=== PATIENT | male | born 1940 | race Caucasian/White ===

== ENCOUNTER 2022-01-22 13:10 | Inpatient (IN) | payer MEDICARE ==
[~2022-01-22] VITALS: Ht 182.9 cm; Wt 79.5 kg
[~2022-01-22 13:10] MED LIST: ATOR40TA PO; Aspir 8181 MG PO; CARV6.25 PO; CILO100 PO; CLOP75 PO; DOCU100 PO; GABA300 PO; HYDR1TAB94 PO; LISI20 PO; NITR.4SL; PANT40 PO; Percocet 5-3251 EACH PO; Senna-Extra17.2 MG PO; TAMS.4ER PO
[2022-01-22] MEDS ORDERED: TERA5 PO (13:30)
[2022-01-22] MEDS ORDERED: HYDR1TAB94 PO (13:31)
[2022-01-22] MEDS ORDERED: CYCLOBENZAPRINE5 MG PO (14:18)
[2022-01-22] MEDS ORDERED: AMLO5 PO (14:19)
[2022-01-22] MEDS ORDERED: ATOR40TA PO (14:21)
[2022-01-22] MEDS ORDERED: Diclofenac Sodi25 MG PO (14:26)
--- NOTE | 2022-01-22 16:28 | NUR ---
SHIFT SUMMARY PT A&OX4, VSS/RA, NPO. PAIN TREATED WITH PERC 5 MG. ORNELAS PATENT & DRAINING YELLOW URINE, STAT LOCK ON, OFF FLOOR. 18G INFUSING D5NS @ 50 MLS/HR. SURG INF PREV DONE. DR ARIAS CONSULTED-POSS O.R. TODAY. WILL REPORT TO NEXT RN.
--- NOTE | 2022-01-22 17:12 | NUR ---
Pt. is awake in bed and welcomes my spiritual care visit. Pt. is pleasant bu slightly unsettled by the delay in his procedure. Listen theraputicly with a calming presence. Establish rapport with Pt. Pt. displays evidence of hope and corrine. Pryaed with Pt. Pt. verbalized gratitude for the spiritual care visit.
[2022-01-23 05:39] LABS: Hematocrit 36.7 % (37.0-53.0); Hemoglobin 12.1 g/dL (13.5-17.5); Mean Corpuscular Volume 91 fL (80-100); Mean Platelet Volume 9.2 fL (9.1-12.4); Platelet Count 84 K/mm3 (150-400); RDW Coefficient Variation 13.7 % (11.7-14.2); RDW Standard Deviation 46.5 fL (35.1-46.3); Red Blood Cell Count 4.04 M/mm3 (4.30-5.90); White Blood Cell Count 2.44 K/mm3 (4.00-11.30)
[2022-01-23 05:55] LABS: Bun/Creatinine Ratio 30.7 (12.0-20.0); Calcium, Blood 8.5 mg/dL (8.5-10.1); Creatinine, Blood 1.27 mg/dL (0.60-1.20); Potassium, Blood 4.2 mmol/L (3.5-5.5)
--- NOTE | 2022-01-23 06:34 | NUR ---
DENTAL HYGIENIST SUMMARY NO ACUTE CHANGES THIS SHIFT. PT TO HAVE L HIP SURGERY LATER TODAY WITH DR ARIAS. PT AAOX4 AND PLEASANT. MEDICATED FOR PAIN SEVERAL TIMES THROUGH THE NIGHT PER EMAR. PT HYPERTENSIVE WITH PAIN BUT IMPROVES AFTER PAIN MEDS GIVEN. WILL CONTINUE TO MONITOR.
[2022-01-23 11:17] LABS: Source, Urine Clean Catch
[2022-01-23 11:22] LABS: Appearance, Urine Clear (Clear); Bilirubin, Urine Neg (Neg); Blood, Urine 5+ (Neg); Color, Urine Yellow (P-Yellow); Glucose Qualitative, Urine Neg (Neg); Ketones, Urine Neg (Neg); Leukocyte Esterase, Urine Neg (Neg); Nitrite, Urine Neg (Neg); Protein, Urine 2+ (Neg); Urobilinogen, Urine NORM (Normal)
[2022-01-23 11:41] LABS: Red Blood Cells, Urine 25-50 /hpf (0-2); Squamous Epithelial Cells Not Seen /hpf (Few); White Blood Cells, Urine 0-2 /hpf (0-5)
[2022-01-23 11:42] LABS: Bacteria Few /hpf; Granular Casts 0-2 /lpf (0)
--- NOTE | 2022-01-23 15:34 | NUR ---
History, Chart, Medications and Allergies reviewed before start of procedure. Patient confirms NPO status and agrees with scheduled surgery. Pre-Op teaching done. Pt verbalizes understanding.
--- NOTE | 2022-01-23 17:06 | NUR ---
01/23/22 1706 David Garcia PT RECOVERED IN OR DUE TO COVID STATUS. REPORT GIVEN TO ORD.KXM AT 0819.
--- NOTE | 2022-01-23 17:31 | NUR ---
RECOVERY DONE IN OR 4 DUE TO POSITIVE COVID
--- NOTE | 2022-01-23 17:57 | NUR ---
SHIFT SUMMARY PT A&OX4, VSS/2LNC FOR SATS >93%, JACQUELINE PO H20, ORNELAS PATENT & DRAINING, DENIES PAIN AT THIS TIME, REPOSITIONS SELF WELL IN BED. S/P L TAMMI HIP, AQUACEL CDI, TEDS & SCDS ON. WILL REPORT TO ONCOMING NOC RN.
--- NOTE | 2022-01-23 18:11 | NUR ---
PT TO ROOM 211 PER BED NO ACUTE CHANGES PLEASANT OFFERS NO COMPLAINTS
[2022-01-24 04:55] LABS: BASOPHILS PERCENT AUTO 0 % (0-2); EOSINOPHILS PERCENT AUTO 0 % (0-6); Hematocrit 32.4 % (37.0-53.0); Hemoglobin 10.6 g/dL (13.5-17.5); IMMATURE GRAN ABSOLUTE AUTO 0.01 K/mm3 (0.00-0.10); IMMATURE GRAN PERCENT AUTO 0 % (0-1); LYMPHOCYTES ABSOLUTE AUTO 0.21 K/mm3 (0.84-5.20); LYMPHOCYTES PERCENT AUTO 7 % (21-46); MONOCYTES ABSOLUTE AUTO 0.23 K/mm3 (0.16-1.47); MONOCYTES PERCENT AUTO 8 % (4-13); Mean Corpuscular HGB 30.1 pg (26.0-34.0); Mean Corpuscular HGB Conc 32.7 g/dL (31.5-36.5); Mean Corpuscular Volume 92 fL (80-100); Mean Platelet Volume 9.8 fL (9.1-12.4); NEUTROPHILS ABSOLUTE AUTO 2.57 K/mm3 (1.96-9.15); NEUTROPHILS PERCENT AUTO 85 % (41-73); Platelet Count 86 K/mm3 (150-400); RDW Coefficient Variation 13.7 % (11.7-14.2); RDW Standard Deviation 46.5 fL (35.1-46.3); Red Blood Cell Count 3.52 M/mm3 (4.30-5.90); White Blood Cell Count 3.02 K/mm3 (4.00-11.30)
[2022-01-24 05:08] LABS: Albumin, Blood 2.6 g/dL (3.4-5.0); Anion Gap 7 mmol/L (6-16); Blood Urea Nitrogen 34 mg/dL (8-24); Bun/Creatinine Ratio 27.6 (12.0-20.0); CO2, Blood 24 mmol/L (21-32); Calcium, Blood 8.6 mg/dL (8.5-10.1); Chloride, Blood 111 mmol/L (98-108); Creatinine, Blood 1.23 mg/dL (0.60-1.20); Glomerular Filtration Rate 58 (60-); Glucose, Blood 131 mg/dL (70-99); Phosphorus, Blood 3.2 mg/dL (2.5-4.9); Potassium, Blood 4.7 mmol/L (3.5-5.5); Sodium, Blood 142 mmol/L (136-145)
--- NOTE | 2022-01-24 05:32 | NUR ---
ASSUMED CARE OF PT AT 1900. PT IS A&OX4, MAX ASSIST OOB AND CALLS APPROPRIATELY. POST OP DAY 1 FOR TOTAL L HIP, CSM IS INTACT. PAIN IS CONTROLLED WITH PRN ALEXANDRE 5MG AND SCHEDULED TORADOL. ABLE TO TOLERATE DIET. C+, TESTED AT [facility], ASYMPTOMATIC BUT REMAINS ON PRECAUTIONS. SLEEPS BETWEEN CARES, SLEEPS 7+ HOURS THIS SHIFT. WILL CONTINUE TO MONITOR.
--- NOTE | 2022-01-24 07:34 | NUR ---
ASSUMED CARE: PT LAYING IN BED ON ROOM AIR. NO ACUTE NEEDS OR CONCERNS AT THIS TIME.
--- NOTE | 2022-01-24 17:36 | NUR ---
SHIFT SUMMARY: PT SPENT SOME TIME UP IN A CHAIR THIS SHIFT. OCCASIONAL COUGH. MEDICATED FOR PAIN PER ORDERS WITH APPROPRIATE MANAGEMENT. DENIES ACUTE NEEDS OR CONCERNS AT THIS TIME.
--- NOTE | 2022-01-24 20:10 | NUR ---
RECEIVED REPORT AND ASSUMED CARE OF PT. HE IS SITTING UP IN BED WATCHING TV. REPORTS PAIN IS TOLERABLE, DENIES ANY N/V, SOB OR CHEST PAIN. DENIES ANY NEEDS AT THIS TIME. CALL LIGHT IN REACH.
--- NOTE | 2022-01-25 01:03 | NUR ---
PT REPORTED THAT HE WAS FEELING THE NEED TO URINATE, URINE VISUALIZED IN BAG. MANIPULATED ORNELAS AND WAS ABLE TO DRAIN APPROX 200 ML OF URINE, PT REPORTED RELIEF. PT COUGHED AFTER SWALLOWING APAP AND COUGHED ONE PARTIALLY DISSOLVED PILL UP. HE WAS ABLE TO SWALLOW IT AGAIN WITH WATER AND APPLE SAUCE. PT MAY BE A CANDIDATE FOR A SWALLOW EVALUATION. ENCOURAGED PT TO MOVE AND REPOSITION, EDUCATED ON AVOIDING DEVELOPMENT OF BED SORES. ASSISTED PT TO REPOSTION IN BED. CALL LIGHT IN REACH.
[2022-01-25 04:35] LABS: Hematocrit 27.9 % (37.0-53.0); Hemoglobin 9.3 g/dL (13.5-17.5); Mean Corpuscular HGB 30.5 pg (26.0-34.0); Mean Corpuscular HGB Conc 33.3 g/dL (31.5-36.5); Mean Corpuscular Volume 92 fL (80-100); Mean Platelet Volume 9.9 fL (9.1-12.4); Platelet Count 96 K/mm3 (150-400); RDW Coefficient Variation 13.7 % (11.7-14.2); RDW Standard Deviation 46.2 fL (35.1-46.3); Red Blood Cell Count 3.05 M/mm3 (4.30-5.90); White Blood Cell Count 2.37 K/mm3 (4.00-11.30)
[2022-01-25 04:51] LABS: Albumin, Blood 2.3 g/dL (3.4-5.0); Anion Gap 7 mmol/L (6-16); Blood Urea Nitrogen 40 mg/dL (8-24); Bun/Creatinine Ratio 27.6 (12.0-20.0); CO2, Blood 24 mmol/L (21-32); Calcium, Blood 8.1 mg/dL (8.5-10.1); Chloride, Blood 111 mmol/L (98-108); Creatinine, Blood 1.45 mg/dL (0.60-1.20); Glomerular Filtration Rate 48 (60-); Glucose, Blood 101 mg/dL (70-99); Phosphorus, Blood 2.7 mg/dL (2.5-4.9); Sodium, Blood 142 mmol/L (136-145)
--- NOTE | 2022-01-25 07:50 | NUR ---
SHIFT SUMMARY: JH IS A&OX4. VSS, NO ACUTE EVENTS OVERNIGHT. LABS WITH KIDNEY FUNCTION WORSENING THIS MORNING, DECREASED CALCIUM, AND DECREASED ALBUMIN. ORNELAS PATENT, STAT LOCK IN PLACE, BAG HANGING OFF OF FLOOR. AQUACELL TO LEFT ANTERIOR HIP C/D&I. HE IS TOLERATING PO INTAKE WELL, ONE EPISODE OF DIFFICULTY SWALLOWING A TABLET NOTED EARLIER. ENCOURAGED PT TO TURN AND REPOSITION WITH MINIMAL SUCCESS, PT WILLING TO MAKE SMALL ADJUSTMENTS. IV TO R WRIST PATENT, PT REPORTS QUITE SENSITIVE TO FLUSHES. HE IS LYING IN BED WITH THE CALL LIGHT IN REACH. REPORT GIVEN TO DAY SHIFT RN.
--- NOTE | 2022-01-25 19:00 | NUR ---
SHIFT SUMMARY PATIENT ALERT AND ORIENTED THROUGHOUT SHIFT. TOLERATING REGULAR DIET. SEEMS TO HAVE SOME DIFFICULTY WITH THINS LIQUIDS. SWALLOW EVAL MAY BE HELPFUL. PASSED ON TO BARREL COATER. 1 PERSON ASSIST WITH FWW AND GAIT BELT TO COMMODE. VOIDING WELL, 2 BMS THIS SHIFT. ASYMPTOMATIC COVID. PLAN TO DISCHARGE TO SNF WHEN BED AVAILABLE. AQUACEL TO LEFT HIP C/D/I.
--- NOTE | 2022-01-26 04:52 | NUR ---
ASSUMED CARE OF PT AT 1900 HRS. NO ACUTE CHANGES THIS SHIFT. PT IS ALERT AND ORIENTED. UP IN CHAIR AT START OF SHIFT, ABLE TO STAND PIVOT TO BED FROM CHAIR WITH 2 STAFF, WALKER AND GAIT BELT. RECENT HIP SURGERY, AQUACEL DRESSING IS CDI. PT IS C+ AND IS ASYMPOMATIC. PT SLEEPS 7+ HOURS THIS SHIFT. WILL CONTINUE TO MONITOR AND GIVE REPORT TO DAY SHIFT RN.
--- NOTE | 2022-01-26 18:21 | NUR ---
SHIFT SUMMARY PT A&OX4, VSS/RA, INCENTIVE SPIROMETER USED BY PT T/O SHIFT, JACQUELINE PO/FLUIDS ENC T/O SHIFT, VOIDING WELL, AMB SBA W/FWW & GB TO BRP X3/NEEDS CUES, UP TO CHAIR T/O SHIFT. PAIN MANAGED WELL WITH TYLENOL AND TORADOL. WILL REPORT TO ONCOMING NOC RN.
--- NOTE | 2022-01-27 04:44 | NUR ---
SHIFT SUMMARY PT RESTED WELL T/O SHIFT. TYLENOL/TORADOL FOR LEFT HIP PAIN PRN. AQUACEL DRESSING REMAINS CDI. USING URINAL TO VOID. USES CALL LIGHT APPROPRIATELY.
[2022-01-27 05:53] LABS: BASOPHILS ABSOLUTE AUTO 0.01 K/mm3 (0.00-0.23); BASOPHILS PERCENT AUTO 0 % (0-2); EOSINOPHILS ABSOLUTE AUTO 0.03 K/mm3 (0.00-0.68); EOSINOPHILS PERCENT AUTO 1 % (0-6); Hematocrit 28.1 % (37.0-53.0); Hemoglobin 9.3 g/dL (13.5-17.5); IMMATURE GRAN PERCENT AUTO 4 % (0-1); LYMPHOCYTES ABSOLUTE AUTO 0.34 K/mm3 (0.84-5.20); LYMPHOCYTES PERCENT AUTO 13 % (21-46); MONOCYTES ABSOLUTE AUTO 0.29 K/mm3 (0.16-1.47); MONOCYTES PERCENT AUTO 11 % (4-13); Mean Corpuscular HGB 30.4 pg (26.0-34.0); Mean Corpuscular HGB Conc 33.1 g/dL (31.5-36.5); Mean Corpuscular Volume 92 fL (80-100); Mean Platelet Volume 9.5 fL (9.1-12.4); NEUTROPHILS ABSOLUTE AUTO 1.81 K/mm3 (1.96-9.15); NEUTROPHILS PERCENT AUTO 70 % (41-73); Platelet Count 138 K/mm3 (150-400); RDW Coefficient Variation 13.8 % (11.7-14.2); RDW Standard Deviation 46.6 fL (35.1-46.3); Red Blood Cell Count 3.06 M/mm3 (4.30-5.90); White Blood Cell Count 2.58 K/mm3 (4.00-11.30)
[2022-01-27 05:56] LABS: Albumin, Blood 2.4 g/dL (3.4-5.0); Anion Gap 7 mmol/L (6-16); Blood Urea Nitrogen 35 mg/dL (8-24); Bun/Creatinine Ratio 25.2 (12.0-20.0); CO2, Blood 24 mmol/L (21-32); Calcium, Blood 8.1 mg/dL (8.5-10.1); Chloride, Blood 110 mmol/L (98-108); Creatinine, Blood 1.39 mg/dL (0.60-1.20); Glomerular Filtration Rate 50 (60-); Glucose, Blood 98 mg/dL (70-99); Phosphorus, Blood 2.7 mg/dL (2.5-4.9); Potassium, Blood 4.6 mmol/L (3.5-5.5); Sodium, Blood 141 mmol/L (136-145)
--- NOTE | 2022-01-27 11:30 | NUR ---
Pt. is sitting up in bed is very pleasant and welcomes my visit. Pt. is unsettled about how his is doing at home. Listen empathetically and offer pastoral care. At Pts. request this polishing machine tender will contact the Pts. jehovah's witness in [place] to see if they can check on Pts. spouse. Prayed with Pt. and Pt. verbalized gratitude and blessing. Action: Call was made to [facility]. The engineering administrator was grateful for the call, and will have someone check on Pts. Spouse Lyn today. senior backup administrator verbalized gratitude, as they were not aware of the Pts. hospital admission. [facility] will also be praying for Pt. and his spouse.
--- NOTE | 2022-01-27 16:19 | NUR ---
SHIFT SUMMARY PT A&O4, VSS/RA, JACQUELINE PO, VOIDING WELL/URINAL, PAIN MANAGED WITH TYLENOL AND TORADOL. UP TO CHAIR T/O SHIFT; STAND/BLE EXERCISES AND BUE ROM EXERCISES X2, AND WORKED WITH PHYSICAL THERAPY AND OT, AMB IN ROOM. PT FEELS BETTER KNOWING HIS CONFUCIANISM IS GOING TO CHECK ON HIS . POD4 L TAMMI HIP AQUACEL DRY/INTACT. SCALP LAC STERIS DRY/INTACT. WILL REPORT TO ONCOMING NOC STEPH.
--- NOTE | 2022-01-28 04:40 | NUR ---
SHIFT SUMMARY NO ACUTE CHANGES THIS SHIFT. PT SLEPT WELL T/O NIGHT. AQUACEL DRESSING TO LEFT HIP REMAINS CDI. UP WITH 1 ASSIST TO BATHROOM. DENIES PAIN. USES CALL LIGHT APPROPRIATELY.
--- NOTE | 2022-01-28 07:21 | NUR ---
ASSUMED CARE: PT RESTING QUIETLY AT THIS TIME. NO ACUTE NEEDS OR CONCERNS.
--- NOTE | 2022-01-28 11:54 | NUR ---
Pt. is awake in a chair and welcomes my visit. Pt. is very pleasant. This cart attendant was able to relay the message to Pt. that his taoism has checked on his , and she is doing well. Pt. displayed evidence of corrine and relief. Pt. verbalizing thanksgiving for the action and the good news. Pt. was unsettled about his covid isolation. Pastoral care was given witha calming presence. Prayed with Pt. Pt. requested a bible, and a David bible from [facility] was given. Pt. verbalized gratitude for the Bible and the Spiritual Care visit.
--- NOTE | 2022-01-28 15:14 | NUR ---
PT REPORTED TO PHYSICAL THERAPIST THAT HE WAS HAVING BURNING WITH URINATION. 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
--- NOTE | 2022-01-28 18:48 | NUR ---
SHIFT SUMMARY: PT AWAITING SNF AT [place]. SNF SAYS HE HAS TO BE COVID FREE PRIOR TO TRANSFER. WORKING WITH PT/OT WHILE IN HOSPITAL. SAT UP IN CHAIR FOR PORTION OF SHIFT. MEDICATED FOR PAIN PRN X1 AND OTHERWISE WAS SCHEDULED. FAMILY SPOKE TO PT ON THE PHONE. NO FURTHER NEEDS OR CONCERNS AT THIS TIME.
--- NOTE | 2022-01-29 05:32 | NUR ---
ASSUMED CARE OF PT AT 1900HRS. NO ACUTE CHANGES THIS SHIFT. PT IS A&OX4, IS A SBA TO BSC AND CALLS APPROPRIATELY. POST OP DAY 6 FOR HIP REPAIR, AQUACEL DRESSING TO L HIP IS CDI, CSM IS INTACT. NO COMPLAINTS OF PAIN THIS SHIFT. PT ABLE TO SLEEP 7+ HOURS. USES BU TO VOID. IS ABLE TO MAKE NEEDS KNOWN. WILL GIVE HANDOFF REPORT TO DAYSHIFT RN.
[2022-01-29 15:08] LABS: SARS-Cov-2 (COVID-19) Antigen Positive (NEGATIVE)
--- NOTE | 2022-01-29 17:25 | NUR ---
SHIFT SUMMARY PT IS A/O X4, VSS, TOLERATING PO INTAKE, CALLS APPROPRIATELY, SBA c FWW/GB TO THE BATHROOM, MULTIPLE LOOSE STOOLS TODAY, HELD ALL STOOL SOFTENERS TODAY. PT DENEIS PAIN THIS SHIFT. RAPID COVID TEST STILL SOWING POSITIVE COVID. NO ACUTE EVENTS THIS SHIFT. CALL LIGHT IN REACH, WILL CTM AND REPORT TO ONCOMING JAMAAL CHOI.
--- NOTE | 2022-01-30 04:19 | NUR ---
ASSUNED CARE OF PT AT 1900 HRS. PT IS A&OX4, SBA TO BR AND CALLS APPROPRIATELY. POST OP DAY 7 FOR HIP REPAIR, AQUACEL DRESSINGS CDI. PT HAS HAD MULTIPLE BMs THIS SHIFT, BOWEL MEDS HELD. RAPID COVID TEST YESTERDAY SHOWS THAT PT IS STILL C+. NO COMPLAINTS OF PAIN. CSM INTACT IN ALL EXTREMITIES. CTM AND WILL GIVE REPORT TO NATALIIA CLARK RN.
--- NOTE | 2022-01-30 17:00 | NUR ---
SHIFT SUMMARY POD7 L HIP FX REPAIR, A/O X4, VSS, TOLERATING PO, PAIN WELL MANAGED, USES CALL LIGHT APPROPRIATELY, ABLE TO MAKE NEEDS KNOWN. NO ACUTE EVENTS THIS SHIFT. CALL LIGHT IN REACH, WILL CTM AND REPORT TO ONCOMING NOC RN.
[2022-01-31 04:55] LABS: Hematocrit 24.7 % (37.0-53.0); Mean Corpuscular HGB 30.5 pg (26.0-34.0); Mean Corpuscular HGB Conc 32.4 g/dL (31.5-36.5); Mean Corpuscular Volume 94 fL (80-100); Mean Platelet Volume 8.8 fL (9.1-12.4); Platelet Count 149 K/mm3 (150-400); RDW Coefficient Variation 14.1 % (11.7-14.2); RDW Standard Deviation 47.9 fL (35.1-46.3); Red Blood Cell Count 2.62 M/mm3 (4.30-5.90); White Blood Cell Count 4.84 K/mm3 (4.00-11.30)
[2022-01-31 05:15] LABS: Albumin, Blood 2.4 g/dL (3.4-5.0); Anion Gap 4 mmol/L (6-16); Blood Urea Nitrogen 30 mg/dL (8-24); CO2, Blood 26 mmol/L (21-32); Calcium, Blood 8.4 mg/dL (8.5-10.1); Chloride, Blood 110 mmol/L (98-108); Creatinine, Blood 1.25 mg/dL (0.60-1.20); Glomerular Filtration Rate 57 (60-); Glucose, Blood 140 mg/dL (70-99); Phosphorus, Blood 3.4 mg/dL (2.5-4.9); Potassium, Blood 3.9 mmol/L (3.5-5.5); Sodium, Blood 140 mmol/L (136-145)
--- NOTE | 2022-01-31 06:49 | NUR ---
SUMMARY PT REPORTS HAD GOOD NIGHTS SLEEP.VOIDING AND TOLERATING PO.STILL PENDING FOR SNF UNTIL HE CAN BE REMOVED FROM COVID ISOLATION ON WEDNESDAY.
--- NOTE | 2022-01-31 18:07 | NUR ---
SUMMARY NO ACUTE CHANGES T/O SHIFT. PT STABLE ON RA. DRESSING TO L ANTERIOR HIP CDI. PT TIRED T/O DAY, DECLINED GETTING UP FOR LUNCH BUT IS SITTING UP IN RECLINER NOW. CALL LIGHT IN REACH.
--- NOTE | 2022-02-01 04:31 | NUR ---
SHIFT SUMMARY NO ACUTE CHANGES TO REPORT THIS SHIFT. PT HAS RESTED MOST OF THE NIGHT, PT HAS DENIED PAIN WHEN ASKED. LEFT HIP DRESSING C/D/I. COVID ISOLATION DC'D 02/01 PER INSTRUCTION FROM INFECTION CONTROL. PT HAS NO RESPIRATORY SYMTPOMS AND REMAINS FEVER FREE. PLAN IS FOR DC SNF TODAY. BED IN LOWEST POSITION, CALL LIGHT WITHIN REACH.
[2022-02-01 10:13] LABS: Hemoglobin 7.7 g/dL (13.5-17.5)
--- NOTE | 2022-02-01 10:36 | NUR ---
H&H H&H 7.02/15/0. PT ASYMPTOMATIC. DISCUSSED W/DR SWE[place]. NO NEW ORDERS AT THIS TIME.
--- NOTE | 2022-02-01 16:48 | NUR ---
SUMMARY NO ACUTE CHANGES T/O SHIFT. PT SAT UP FOR LUNCH. AMBULATED TWICE TO RESTROOM AND BACK USING FWW AND GAIT BELT. DRESSING TO L HIP CDI. MEDICATED PT DURING SHIFT PER ORDERS FOR PAIN. RESTING IN BED AT THIS TIME. DENIES ANY NEEDS. CALL LIGHT IN REACH.
--- NOTE | 2022-02-02 05:27 | NUR ---
POD 11 S/P LEFT HIP REPAIR. PT VSS T/O NIGHT, RESP E/U, SATS >90% ON RA. AQUACEL DRESSING CDI, NO CHANGES NOTED TO SWELLING IN HIP. PAIN MGD W/TYLENOL W/REP RELIEF. PT JACQUELINE PO, DENIED N/V, IS VOIDING URINE W/O DIFFICULTY. PT REPOSITIONING SELF IN BED, IS USING CALL LIGHT FOR ASSISTANCE. PLAN TO D/C TO SNF TODAY.
[2022-02-02 08:36] LABS: Hemoglobin 8.3 g/dL (13.5-17.5)
[2022-02-02 09:25] LABS: Percent Saturation 25.5 % (20.0-50.0)
[2022-02-02] MEDS ORDERED: XARELTO20 MG PO (11:59)
[2022-02-02] MEDS ORDERED: Acetaminophen650 M1 PO (11:59)
[2022-02-02 12:44] LABS: SARS-Cov-2 (COVID-19) PCR, MMC POSITIVE (NEGATIVE)
--- NOTE | 2022-02-02 14:45 | NUR ---
DISCHARGE POD 11 LEFT ANT TAMMI HIP REPLACEMENT D/T HIP FX. PATIENT HAS BEEN DOING PHSYICAL THERAPY DAILY AND TOLERATING VERY WELL. MINIMAL PAIN, MANAGED W/ TYLENOL PER EMAR. AQUQCEL TO LEFT HIP, C/D/I. EATING, DRINKING, & VOIDING WELL. BM YESTERDAY. DISCHARGE PACKET SENT WITH PATIENTS GARMENT FORM ASSEMBLER. REPORT CALLED TO RN @ [facility] IN [place].
== END 2022-02-02 14:55 | DRG 521 ==
LOC: SURS 13:10
PROVIDERS: Internal Medicine; ADMIT Internal Medicine
PROC: 0SRS01A Replacement of Left Hip Joint, Femoral Surface with Metal Synthetic Substitute, Uncemented, Open Approach (ICD-10-PCS; principal; 2022-01-22)
PROC: 8E0ZXY6 Isolation (ICD-10-PCS; 2022-01-22)
DX: S72.012A Unspecified intracapsular fracture of left femur, initial encounter for closed fracture (principal); U07.1 COVID-19; D62 Acute posthemorrhagic anemia; N17.9 Acute kidney failure, unspecified; D61.818 Other pancytopenia; I25.10 Atherosclerotic heart disease of native coronary artery without angina pectoris; M16.10 Unilateral primary osteoarthritis, unspecified hip; I73.9 Peripheral vascular disease, unspecified; Z66 Do not resuscitate; N18.30 Chronic kidney disease, stage 3 unspecified; I12.9 Hypertensive chronic kidney disease with stage 1 through stage 4 chronic kidney disease, or unspecified chronic kidney disease; N40.0 Benign prostatic hyperplasia without lower urinary tract symptoms; M54.9 Dorsalgia, unspecified; K21.9 Gastro-esophageal reflux disease without esophagitis; G89.29 Other chronic pain; D69.6 Thrombocytopenia, unspecified; Z79.891 Long term (current) use of opiate analgesic; Z98.890 Other specified postprocedural states; Z79.82 Long term (current) use of aspirin; Z79.899 Other long term (current) drug therapy; Z79.02 Long term (current) use of antithrombotics/antiplatelets; Z86.73 Personal history of transient ischemic attack (TIA), and cerebral infarction without residual deficits; Z95.5 Presence of coronary angioplasty implant and graft; Z95.820 Peripheral vascular angioplasty status with implants and grafts; Z79.811 Long term (current) use of aromatase inhibitors; W10.8XXA Fall (on) (from) other stairs and steps, initial encounter
CPT/HCPCS: 36415; 72170; 80048; 80069; 81001; 82728; 83540; 83550; 85014; 85018; 85025; 85027; 87426; 93005; 93010; 97110; 97116; 97162; 97166; 97530; 97535; A9270; C1776; C9803; J0171; J0690; J0735; J1100; J1170; J1650; J1885; J2250; J2405; J2704; J2795; J3010; J7042; J7120; U0004